=== PATIENT | male | born 1975 | race Caucasian/White ===

== ENCOUNTER 2020-05-31 14:47 | Inpatient (IN) | payer OTHER, SELFPAY ==
[~2020-05-31] VITALS: Ht 165.1 cm; Wt 91.6 kg
--- NOTE | 2020-05-31 14:50 | NUR ---
Patient to ER bed 04 to gown for evaluation. Side rails up.
[2020-05-31 15:00] VITALS: BP_SYST 126
[2020-05-31] MEDS ORDERED: DEXAMETHASONE SOD PHOSPHATE 10 MG/ML VIAL IVP ONE (15:00)
--- NOTE | 2020-05-31 15:00 | NUR ---
Pt came to ER via BLS ambulance for dyspnea and SOB. Pt O2 fell to 90% on RA per medics, was placed on 4L nasal cannula where it is now WNL. Pt resting in [facility] awaiting
--- NOTE | 2020-05-31 15:05 | NUR ---
ER at bedside examining patient.
[2020-05-31 15:18] LABS: BASOPHILS % (AUTO) 0.5 % (0.0-2.0); EOSINOPHILS % (AUTO) 0.3 % (0.0-4.0); HEMATOCRIT 42.1 % (36-54); HEMOGLOBIN 14.2 g/dL (14.0-18.0); LYMPHOCYTES # (AUTO) 1.4 K/uL (1.0-5.5); LYMPHOCYTES % (AUTO) 17.7 % (20.5-51.5); MEAN CORPUSCULAR HEMOGLOBIN 28 pg (27-31); MEAN CORPUSCULAR HGB CONC 34 % (32-36); MEAN CORPUSCULAR VOLUME 83 fL (79.0-98.0); MONOCYTES # (AUTO) 0.5 K/uL (0.0-1.0); MONOCYTES % (AUTO) 6.2 % (1.7-9.3); NEUTROPHILS # (AUTO) 5.8 K/uL (1.8-7.7); NEUTROPHILS % (AUTO) 75.3 % (40.0-70.0); PLATELET COUNT (AUTO) 258 K/uL (130-430); RED BLOOD CELL COUNT(AUTO) 5.06 MIL/uL (4.2-6.2); RED CELL DISTRIBUTION WIDTH 13.3 % (9.0-15.0); WHITE BLOOD COUNT (AUTO) 7.7 K/uL (4.8-10.8)
[2020-05-31 15:32] LABS: CALCIUM 8.5 mg/dL (8.4-11.0); CREATININE 0.83 mg/dL (0.55-1.30); POTASSIUM 3.7 mmol/L (3.5-5.1)
[2020-05-31 15:37] LABS: PROTHROMBIN TIME 9.9 SECS (9.5-12.5)
[2020-05-31 15:38] LABS: ALBUMIN 2.9 g/dL (3.4-4.8); TOTAL BILIRUBIN 0.6 mg/dL (0.0-1.0)
[2020-05-31 16:26] LABS: C-REACTIVE PROTEIN QUANT 17.6 mg/dL (0-0.5)
--- NOTE | 2020-05-31 16:30 | NUR ---
Pt states he does not have any routine medications at home. He was self medicating with cough medication and cold medication.
--- NOTE | 2020-05-31 16:53 | NUR ---
Patient will be admitted to care of Giovanna. Admitted to Tele unit. Will go to room 116B. Belongings list completed. Complete and up to date summary report printed. SBAR report to be given at bedside with opportunity for questions.
[2020-05-31] MEDS ORDERED: ALBUTEROL MDI INHALATION 8 GM INH INH PRN (17:00)
[2020-05-31] MEDS ORDERED: *LOVENOX 1MG/KG Q12H/PHARMACY XX ONE (17:00)
--- NOTE | 2020-05-31 17:20 | NUR ---
Patient was transferred via gurney from ER, in stable condition. Bulgarian speaking aax4 does not present any signs of distress on 4L NC. IV line on L hand is patent and not running any fluids at this time. Patient is ambulatory and has a urinal at bedside. Vitals were stable upon arrival. He states that he does not take any home meds. I got a ffull report from the ER nurse. Bed is low, locked, 2 side rails up and call light is within reach. Erick AKHTAR
[2020-05-31] MEDS ORDERED: ENOXAPARIN SODIUM 40 MG/0.4 ML SYRINGE SUBCUT ONE (17:30)
--- NOTE | 2020-05-31 17:35 | NUR ---
[facility] @ [phone]
[2020-05-31] MEDS: AZITHROMYCIN 500 MG in NS 250 ML IV SCH (18:52)
[2020-05-31] MEDS: cefTRIAXone 1 GM IVPB PREMIX 50 ML IV SCH (18:53)
--- NOTE | 2020-05-31 19:02 | NUR ---
Closing notes: Patient is oxygenating well, not showing any signs of distress. IV antibiotics were hung via IV line. Patient is having his dinner tray and not showing any signs of distress on 4L NC. Patient is alert and oriented and his covid test is still pending. He will remain in isolation precautions. I will give report to [facility] shift [facility] nurse. Bed is low, locked, 2 side rails up and call light is within reach. Erick AKHTAR
--- NOTE | 2020-05-31 19:30 | NUR ---
CHANGE OF SHIFT; pt. was jus admitted today, no distress. croatian speaking. on contact isolation for Covid. call light within reach.
[2020-05-31 21:00] VITALS: BP_SYST 117
--- NOTE | 2020-05-31 21:00 | NUR ---
NOTES: pt. awake, alert and oriented. IV lock on left hand. moves all extremities. no complaints manifested. pt. needs attended. instructed to use call light for help and verbalized understanding. O2 @ 4l/nc. noted occ. bout of non productive cough.
--- NOTE | 2020-06-01 | NUR ---
NOTES: pt. sleeping when checked. no complaints noted. call light within reach.
--- NOTE | 2020-06-01 03:00 | NUR ---
NOTES: condition unchanged. continue to monitor.
--- NOTE | 2020-06-01 05:15 | NUR ---
NOTES: pt. remain sleeping. condition unchanged. remains sinus rhythm. call light at bedside.
[2020-06-01 06:00] VITALS: BP_SYST 109
--- NOTE | 2020-06-01 06:44 | NUR ---
CLOSING NOTES; IV flushed and retaped. voided per urinal. still coughing on and off, did not get enough sleep because of his cough. no distress. for further care and assistance. contact isolation for PUI Covid. call light within reach.
[2020-06-01] MEDS ORDERED: ALBUTEROL SULFATE 0.083% 2.5 MG/3 ML VIAL.NEB INH PRN (07:30)
[2020-06-01 07:46] VITALS: BP_SYST 109
[2020-06-01 08:00] VITALS: BP_SYST 111
--- NOTE | 2020-06-01 08:00 | NUR ---
Note Pt sitting up in bed eating his breakfast. O2 on at 4L/nc. Pt cough, non productive at this time. Tele unit attached and intact at this time. No SOB/resp or pain/discomfort noted at this time. No needs noted at this time. Call light within reach. IV in left hand intact and patent at this time. Call light within reach.
[2020-06-01] MEDS: ENOXAPARIN SODIUM 40 MG/0.4 ML SYRINGE SUBCUT SCH (09:08)
[2020-06-01] MEDS: DEXAMETHASONE SOD PHOSPHATE 10 MG/ML VIAL IVP SCH (09:08)
[2020-06-01 12:00] VITALS: BP_SYST 114
[2020-06-01 16:00] VITALS: BP_SYST 112
[2020-06-01] MEDS: AZITHROMYCIN 500 MG in NS 250 ML IV SCH (16:50)
--- NOTE | 2020-06-01 19:00 | NUR ---
Closing note Pt has been ambulating to restroom with steady gait all shift. Pt has had his O2 on at 4L/nc all shift. No SOB/resp distress or pain/discomfort noted at this time. Pt was checked on q1' and PRN all shift for needs and care. No needs noted at this time. Call light within reach. Pt maintained with safety and isolation precautions all shift.
[2020-06-01] MEDS: cefTRIAXone 1 GM IVPB PREMIX 50 ML IV SCH (19:23)
--- NOTE | 2020-06-01 19:30 | NUR ---
CHANGE OF SHIFT; pt. resting, no acute distress. kept on isolation for PUI Covid. call light within reach.
--- NOTE | 2020-06-01 20:00 | NUR ---
NOTES: nurse Herbie took result of Covid test from lab which is positive. will call
--- NOTE | 2020-06-01 20:36 | NUR ---
NOTES: called Dr. Fernando but Dr. Hwang condemnation engineer, spoke to him about positive Covid test, no further order. keep him isolated. charge nurse Krystal also made aware.
[2020-06-01 21:00] VITALS: BP_SYST 108
[2020-06-01] MEDS: ASCORBIC ACID 500 MG TABLET PO SCH (21:00)
--- NOTE | 2020-06-01 21:30 | NUR ---
NOTES: pt. checked. flushed IV site quite sluggish, IV lock. pt. position self for comfort. encourage fluids, gave warm water. pt. needs attended. surgical services asst shows sinus rhythm, pt. ambulates to the restroom. voided per urinal. call light within reach.
--- NOTE | 2020-06-02 00:10 | NUR ---
NOTES: pt. sleeping when checked. no further complaints. call light within reach.
[2020-06-02 01:26] VITALS: BP_SYST 108
--- NOTE | 2020-06-02 02:30 | NUR ---
NO RESPIRATORY DISTRESS NOTED. RESTING QUIETLY IN BED. Addendum: 06/03/20 at 0256 by Amirah Golden RN WRONG ENTRY DATE. PLEASE DISREGARD.
--- NOTE | 2020-06-02 03:00 | NUR ---
NOTES: condition unchanged, continue to monitor. call light at bedside.
--- NOTE | 2020-06-02 05:07 | NUR ---
NOTES: still sleeping. no distress. condition unchanged. observed contact isolation for Covid.
--- NOTE | 2020-06-02 06:01 | NUR ---
NOTES: pt. up and ambulated abhishek the restroom, had small bm. verbalized he has some abdominal discomfort. , abdomen quite distended blaming the warm water he had last night. left hand IV site ,hardly flushing, restart another IV site on rt. hand with gauge #22. IV lock. claioms still gets short of breath on and off. HOB elevated and instructed on deep breathing.
--- NOTE | 2020-06-02 06:47 | NUR ---
CLOSING NOTES;' pt. resting. IV lock patent. kept O2 2 4l/nc. for further care and assistance. call light within reach. consult with Kam Brice today. observed isolation for Covid.
[2020-06-02 08:00] VITALS: BP_SYST 107
--- NOTE | 2020-06-02 08:00 | NUR ---
Note Pt sitting up in bed eating bis breakfast with O2 on at this time. Tele unit atrtached and intact at this time. IV in right hand intact and patent at this time. No SOB/resp distress or pain/discomfort noted at this time. No needs noted at this time. Call light within reach.
[2020-06-02] MEDS: DOCUSATE SODIUM 100 MG CAPSULE PO SCH (08:55)
[2020-06-02] MEDS: ASCORBIC ACID 500 MG TABLET PO SCH ×2 (08:55→21:02)
[2020-06-02] MEDS: CHOLECALCIFEROL (VITAMIN D-3) 400 UNIT TABLET PO SCH (08:55)
[2020-06-02] MEDS: DEXAMETHASONE SOD PHOSPHATE 10 MG/ML VIAL IVP SCH (08:55)
[2020-06-02] MEDS: ENOXAPARIN SODIUM 40 MG/0.4 ML SYRINGE SUBCUT SCH (08:56)
--- NOTE | 2020-06-02 09:35 | NUR ---
Note Dr Fernando on the floor to assess pt at this time.
[2020-06-02] MEDS ORDERED: *LOVENOX 1MG/KG Q12H/PHARMACY XX PRN (10:00)
--- NOTE | 2020-06-02 11:00 | NUR ---
Note Pt resting in bed, denies any needs at this time. Call light within reach.
--- NOTE | 2020-06-02 11:25 | NUR ---
SS NOTES: TURBINE INSPECTOR attempted to phone patient for DCP @ [phone], no answer. Cell # is also disconnected and no family to contact.
[2020-06-02 12:00] VITALS: BP_SYST 119
[2020-06-02 13:37] LABS: CREATININE 0.83 mg/dL (0.55-1.30)
[2020-06-02 13:43] LABS: ALBUMIN 2.6 g/dL (3.4-4.8); TOTAL BILIRUBIN 0.3 mg/dL (0.0-1.0)
[2020-06-02 13:56] LABS: BASOPHILS % (AUTO) 0.1 % (0.0-2.0); EOSINOPHILS % (AUTO) 0.3 % (0.0-4.0); HEMATOCRIT 44.5 % (36-54); HEMOGLOBIN 14.8 g/dL (14.0-18.0); LYMPHOCYTES # (AUTO) 1.1 K/uL (1.0-5.5); LYMPHOCYTES % (AUTO) 8.7 % (20.5-51.5); MEAN CORPUSCULAR HEMOGLOBIN 28 pg (27-31); MEAN CORPUSCULAR HGB CONC 33 % (32-36); MEAN CORPUSCULAR VOLUME 84 fL (79.0-98.0); MONOCYTES # (AUTO) 0.7 K/uL (0.0-1.0); MONOCYTES % (AUTO) 5.4 % (1.7-9.3); NEUTROPHILS % (AUTO) 85.5 % (40.0-70.0); PLATELET COUNT (AUTO) 381 K/uL (130-430); RED BLOOD CELL COUNT(AUTO) 5.29 MIL/uL (4.2-6.2); RED CELL DISTRIBUTION WIDTH 13.4 % (9.0-15.0); WHITE BLOOD COUNT (AUTO) 12.9 K/uL (4.8-10.8)
[2020-06-02 16:00] VITALS: BP_SYST 121
--- NOTE | 2020-06-02 16:00 | NUR ---
NOTE Pt's right hand IV infiltrated, new IV started in left forearm - 20g' - by Nia Calvillo RN at 1510. Pt resting in bed at this time. Denies any needs at this time. Call light within reach.
[2020-06-02] MEDS: AZITHROMYCIN 500 MG in NS 250 ML IV SCH (18:19)
--- NOTE | 2020-06-02 18:40 | NUR ---
Note Pt sitting on side of bed and eating his dinner. No SOB/resp distress or pain/discomfort noted at this time. Pt has his O2 on at 4L/nc on all shift. Tele unit attached and intact all shift. IV in left forearm intact and patent all shift. Pt was checked on q1' and PRN all shift for needs and care. No needs noted at this time. Pt was maintained with safety and isolation precautions all shift. Bed in low position all shift. Call light within reach.
--- NOTE | 2020-06-02 19:10 | NUR ---
REPORT RECEIVED FROM DAY SHIFT NURSE. PT IS ON OXYGEN AT 4L/MIN PER NC AND NO RESPIRATORY DISTRESS NOTED. OXYGEN SATURATION IS 98%. SKIN IS WARM AND DRY TO TOUCH. NO SIGNS OR SYMPTOMS OF HYPOGLYCEMIA OR HYPERGLYCEMIA NOTED. SALINE LOCK IN LFA IS WITHOUT ANY SIGNS OF INFILTRATION. FALL, DROPLET ISOLATION AND SAFETY PRECAUTIONS ARE IN PLACE.
[2020-06-02] MEDS: cefTRIAXone 1 GM IVPB PREMIX 50 ML IV SCH (19:11)
[2020-06-02 20:00] VITALS: BP_SYST 108
[2020-06-02] MEDS: ENOXAPARIN SODIUM 100 MG/ML SYRINGE SUBCUT SCH (21:02)
--- NOTE | 2020-06-02 21:02 | NUR ---
HS MEDICATIONS GIVEN. NO RESPIRATORY DISTRESS NOTED. PT REMAINS ON OXYGEN AT 4L/MIN PER NC.
--- NOTE | 2020-06-02 22:30 | NUR ---
NO RESPIRATORY DISTRESS NOTED. RESTING QUIETLY IN BED.
[2020-06-03] VITALS: BP_SYST 111
--- NOTE | 2020-06-03 | NUR ---
VSS. NO C/O PAIN OR DISCOMFORT. CALL LIGHT IS WITH PT AND BED IS IN LOCKED/LOWEST POSITIONS.
--- NOTE | 2020-06-03 02:30 | NUR ---
SLEEPING WITHOUT ANY RESPIRATORY DISTRESS.
--- NOTE | 2020-06-03 04:30 | NUR ---
SLEEPING COMFORTABLY IN BED. NO RESP DISTRESS NOTED.
--- NOTE | 2020-06-03 06:38 | NUR ---
FULLY AWAKE AND NOT IN ANY DISTRESS. PT REMAINS ON OXYGEN AT 4L/MIN PER NC. SALINE LOCK IN LFA IS WITHOUT ANY SIGNS OF INFILTRATION. CALL LIGHT IS WITH PT AND BED IS IN LOWEST/LOCKED POSITIONS. WILL ENDORSE TO DAY SHIFT NURSE.
--- NOTE | 2020-06-03 07:45 | NUR ---
INITIAL NOTE PT AWAKE, RESTING IN BED. PT ON 4L NC, SATURATING AT 98%. PT DENIES ANY SOB AT THIS TIME. PT HAS DRY COUGH. IV SALINE LOCKED. CALL LIGHT WITHIN REACH, BED IN LOW AND LOCKED POSITION. PT COVID POSITIVE, ISOLATION PRECAUTIONS IN PLACE.
[2020-06-03 07:50] LABS: BASOPHILS % (AUTO) 0.4 % (0.0-2.0); EOSINOPHILS # (AUTO) 0.1 K/uL (0.0-0.4); EOSINOPHILS % (AUTO) 0.9 % (0.0-4.0); HEMATOCRIT 39.3 % (36-54); LYMPHOCYTES # (AUTO) 2.2 K/uL (1.0-5.5); LYMPHOCYTES % (AUTO) 21.1 % (20.5-51.5); MEAN CORPUSCULAR HEMOGLOBIN 28 pg (27-31); MEAN CORPUSCULAR HGB CONC 33 % (32-36); MEAN CORPUSCULAR VOLUME 85 fL (79.0-98.0); MONOCYTES # (AUTO) 0.8 K/uL (0.0-1.0); MONOCYTES % (AUTO) 7.9 % (1.7-9.3); NEUTROPHILS # (AUTO) 7.4 K/uL (1.8-7.7); NEUTROPHILS % (AUTO) 69.7 % (40.0-70.0); PLATELET COUNT (AUTO) 360 K/uL (130-430); RED CELL DISTRIBUTION WIDTH 13.1 % (9.0-15.0); WHITE BLOOD COUNT (AUTO) 10.6 K/uL (4.8-10.8)
[2020-06-03 08:00] VITALS: BP_SYST 101
[2020-06-03 08:25] LABS: ALBUMIN 2.3 g/dL (3.4-4.8); CALCIUM 8.6 mg/dL (8.4-11.0); CREATININE 0.88 mg/dL (0.55-1.30); POTASSIUM 3.9 mmol/L (3.5-5.1); TOTAL BILIRUBIN 0.3 mg/dL (0.0-1.0)
[2020-06-03] MEDS: DOCUSATE SODIUM 100 MG CAPSULE PO SCH (08:35)
[2020-06-03] MEDS: DEXAMETHASONE SOD PHOSPHATE 10 MG/ML VIAL IVP SCH (08:35)
[2020-06-03] MEDS: ASCORBIC ACID 500 MG TABLET PO SCH ×2 (08:35→20:18)
[2020-06-03] MEDS: CHOLECALCIFEROL (VITAMIN D-3) 400 UNIT TABLET PO SCH (08:35)
[2020-06-03] MEDS: ENOXAPARIN SODIUM 100 MG/ML SYRINGE SUBCUT SCH ×2 (08:36→20:20)
--- NOTE | 2020-06-03 09:45 | NUR ---
RN ROUNDS NO CHANGE IN ASSESSMENT, WILL CONTINUE TO MONITOR.
[2020-06-03 12:00] VITALS: BP_SYST 103
--- NOTE | 2020-06-03 12:00 | NUR ---
RN ROUNDS PT AWAKE, SITTING AT EDGE OF BED. PT ON ROOM AIR AT THIS TIME SATURATING AT 93%. PT DENIES ANY SOB. DRY COUGH NOTED. WILL CONTINUE TO MONITOR.
--- NOTE | 2020-06-03 14:00 | NUR ---
RN ROUNDS PT RESTING, NO ACUTE DISTRESS NOTED, BREATHING EVEN AND UNLABORED. PT IS ON 2L NC AT THIS TIME. REMDESIVIR INFUSING AT THIS TIME. WILL CONTINUE TO MONITOR.
[2020-06-03 16:00] VITALS: BP_SYST 112
--- NOTE | 2020-06-03 16:00 | NUR ---
RN ROUNDS PT AWAKE RESTING IN BED, PT ON 2L NC, SATURATING AT 95%. IV ANTIBIOTICS INFUSING AT THIS TIME. WILL CONTINUE TO MONITOR.
[2020-06-03] MEDS: AZITHROMYCIN 500 MG in NS 250 ML IV SCH (17:11)
[2020-06-03] MEDS: cefTRIAXone 1 GM IVPB PREMIX 50 ML IV SCH (18:07)
--- NOTE | 2020-06-03 18:34 | NUR ---
CLOSING NOTE PT AWAKE, RESTING IN BED. PT ON 2L NC, SATURATING AT 95%. PT DENIES ANY SOB AT THIS TIME. PT HAS DRY COUGH. IV ANTIBIOTICS INFUSING. CALL LIGHT WITHIN REACH, BED IN LOW AND LOCKED POSITION. PT COVID POSITIVE, ISOLATION PRECAUTIONS IN PLACE. ALL NEEDS MET THROUGHOUT SHIFT. WILL CONTINUE TO MONITOR UNTIL PT CARE IS ENDORSED TO DIVERSIFIED CROPS FARMWORKER RN.
--- NOTE | 2020-06-03 19:20 | NUR ---
PT WAS RECEIVED LYING IN BED FULLY AWAKE, ALERT AND ORIENTED X4. PT IS ON OXYGEN AT 2L/MIN PER NC AND NO RESPIRATORY DISTRESS NOTED. OXYGEN SATURATION IS 99%. SKIN IS WARM AND DRY TO TOUCH. NO SIGNS OR SYMPTOMS OF HYPOGLYCEMIA OR HYPERGLYCEMIA NOTED. SALINE LOCK IN LFA IS WITHOUT ANY SIGNS OF INFILTRATION. FALL, DROPLET ISOLATION AND SAFETY PRECAUTIONS ARE IN PLACE.
[2020-06-03 20:00] VITALS: BP_SYST 109
--- NOTE | 2020-06-03 22:00 | NUR ---
PT IS RESTING COMFORTABLY IN BED. NO RESPIRATORY DISTRESS NOTED. CALL LIGHT IS WITH PT AND BED IS IN LOCKED/LOWEST POSITIONS.
[2020-06-04] VITALS: BP_SYST 112
--- NOTE | 2020-06-04 | NUR ---
VSS. NO C/O PAIN OR DISCOMFORT. CALL LIGHT IS WITH PT AND BED IS IN LOWEST/LOCKED POSITIONS.
--- NOTE | 2020-06-04 02:00 | NUR ---
PT IS SLEEPING WITHOUT ANY RESPIRATORY DISTRESS NOTED. CALL LIGHT IS WITH PT AND BED IS IN LOWEST/LOCKED POSITIONS.
--- NOTE | 2020-06-04 04:15 | NUR ---
PT IS SLEEPING COMFORTABLY ON BED WITHOUT ANY RESPIRATORY DISTRESS NOTED. CALL LIGHT IS WITH PT AND BED IS IN LOWEST/LOCKED POSITIONS.
--- NOTE | 2020-06-04 06:45 | NUR ---
PT IS FULLY AWAKE AND ALERT. PT REMAINS ON OXYGEN AT 2L/MIN PER NC. SALINE LOCK IN LFA IS WITHOUT ANY SIGNS OF INFILTRATION. CALL LIGHT IS WITH PT AND BED IS IN LOWEST/LOCKED POSITIONS. WILL ENDORSE TO DAY SHIFT NURSE.
--- NOTE | 2020-06-04 08:30 | NUR ---
OPENING NOTES: RECEIVED PATIENT AWAKE, ALERT, ORIENTED. RESPIRATIONS EVEN AND UNLABORED. NO ACUTE DISTRESS NOTED. NO FACIAL GRIMACE NOTED. WILL CONTINUE TO MONITOR PATIENT.
[2020-06-04] MEDS: DEXAMETHASONE SOD PHOSPHATE 10 MG/ML VIAL IVP SCH (09:57)
[2020-06-04] MEDS: CHOLECALCIFEROL (VITAMIN D-3) 400 UNIT TABLET PO SCH (09:57)
[2020-06-04] MEDS: ASCORBIC ACID 500 MG TABLET PO SCH ×2 (09:57→21:52)
[2020-06-04] MEDS: DOCUSATE SODIUM 100 MG CAPSULE PO SCH (09:57)
[2020-06-04] MEDS: ENOXAPARIN SODIUM 100 MG/ML SYRINGE SUBCUT SCH ×2 (10:02→21:52)
[2020-06-04 14:08] VITALS: BP_SYST 112
[2020-06-04] MEDS: AZITHROMYCIN 500 MG in NS 250 ML IV SCH (17:36)
[2020-06-04] MEDS: cefTRIAXone 1 GM IVPB PREMIX 50 ML IV SCH (18:27)
--- NOTE | 2020-06-04 18:36 | NUR ---
CLOSING NOTES: HOURLY ROUNDING PERFORMED. PATIENT AWAKE, ALERT, ORIENTED. RESPIRATIONS EVEN AND UNLABORED. NO ACUTE DISTRESS NOTED. NO PAIN NOTED. WILL ENDORSE TO RN FLOAT NURSE FOR CONTINUITY OF CARE OF PATIENT.
[2020-06-04 18:41] VITALS: BP_SYST 105
--- NOTE | 2020-06-04 19:20 | NUR ---
OPENING NOTE RECEIVED REPORT FROM HERMILO DANIELSON. PATIENT AOX4. NO SIGNS OF RESPIRATORY DISTRESS AND DISCOMFORT NOTED. ON 2L OF OXYGEN VIA NASAL CANULA, ATTACHED AND SECURED, TOLERATING WELL, TITRATE AT 1L OF OXYGEN AT THIS TIME, 02 SATURATION OF 95%. IV SITE, PATENCY NOTED. CALL LIGHT WITHIN REACH. PATIENT WAS EDUCATED TO USE CALL LIGHT WHEN ASSISTANCE IS NEEDED. PATIENT VERBALIZED UNDERSTANDING. BED LOCKED AND IN LOWEST POSITION. REFUSED BED ALARM, PATIENT WAS EDUCATED ON PURPOSE AND BENEFITS OF BED ALARM, STILL REFUSED. OTHER SAFETY PRECAUTIONS IN PLACE. WILL CONTINUE TO MONITOR PATIENT.
[2020-06-04 20:00] VITALS: BP_SYST 117
--- NOTE | 2020-06-04 21:52 | NUR ---
MED PASS DUE MEDICATION GIVEN AT THIS TIME. PATIENT WAS EDUCATED ON MEDICATION THAT WAS GIVEN FOR ITS PURPOSE, SIDE EFFECT AND BENEFITS. PATIENT ABLE TO VERBALIZED UNDERSTANDING. CALL LIGHT WITHIN IN REACH. ON 1L OF OXYGEN VIA NASAL CANULA, 02 SATURATION OF 95%. DENIES PAIN AND DISCOMFORT. SAFETY PRECAUTIONS IN PLACE. WILL CONTINUE TO MONITOR PATIENT
--- NOTE | 2020-06-04 23:45 | NUR ---
VITAL SIGNS/ RN ROUNDS PATIENT HAS NO SIGNS OF RESPIRATORY DISTRESS NOTED. DENIES PAIN AND DISCOMFORT. ON 1L OF OXYGEN, TOLERATING WELL, O2 SATURATION AT 95%. CALL LIGHT WITHIN REACH. NEEDS ATTENDED. SAFETY PRECAUTIONS IN PLACE. WILL CONTINUE TO MONITOR PATIENT.
[2020-06-05] VITALS: BP_SYST 116
--- NOTE | 2020-06-05 02:36 | NUR ---
RN ROUNDS PATIENT ASLEEP AT THIS TIME. NO SIGNS OF RESPIRATORY DISTRESS AND DISCOMFORT NOTED. BREATHING EVEN AND UNLABORED. ON 1L OF OXYGEN VIA NASAL CANULA, TOLERATING WELL. CALL LIGHT WITHIN REACH. SAFETY PRECAUTIONS IN PLACE. WILL CONTINUE TO MONITOR PATIENT
--- NOTE | 2020-06-05 07:00 | NUR ---
CLOSING NOTE PATIENT ASLEEP AT THIS TIME. PATIENT HAS NO SIGNS OF RESPIRATORY DISTRESS AND DISCOMFORT NOTED. BREATHING EVEN AND UNLABORED. ON 1L OF OXYGEN, TOLERATING WELL. CALL LIGHT WITHIN REACH. ON ISOLATION PRECAUTION. SAFETY PRECAUTIONS IN PLACE. ALL NEEDS MET THROUGHOUT THE SHIFT. WILL CONTINUE TO MONITOR UNTIL ENDORSE TO ONCOMING SHIFT NURSE FOR CONTINUITY OF CARE.
--- NOTE | 2020-06-05 07:43 | NUR ---
Opening Note received SBAR report from overnight cashier RN, patient resting in bed, respirations even and unlabored on 1L nasal cannula, no acute distress noted, educated patient on use of call light and asked to call for assistance, patient verbalized understanding, call light in reach, educated patient on use of bed alarm for patient safety, patient verbalized understanding, patient refusing bed alarm, bed in low and locked position.
[2020-06-05 08:00] VITALS: BP_SYST 115
[2020-06-05] MEDS: DOCUSATE SODIUM 100 MG CAPSULE PO SCH (08:48)
[2020-06-05] MEDS: DEXAMETHASONE SOD PHOSPHATE 10 MG/ML VIAL IVP SCH (08:49)
[2020-06-05] MEDS: CHOLECALCIFEROL (VITAMIN D-3) 400 UNIT TABLET PO SCH (08:50)
[2020-06-05] MEDS: ASCORBIC ACID 500 MG TABLET PO SCH ×2 (08:50→22:27)
[2020-06-05] MEDS: ENOXAPARIN SODIUM 100 MG/ML SYRINGE SUBCUT SCH ×2 (08:50→22:21)
--- NOTE | 2020-06-05 09:50 | NUR ---
RN Rounds patient sitting up in bed eating breakfast, tolerating well, patient denies any pain, no acute distress noted.
[2020-06-05 12:00] VITALS: BP_SYST 128
--- NOTE | 2020-06-05 12:15 | NUR ---
Lunch patient sitting up in bed eating lunch, tolerating well, no acute distress noted, patient denies any nausea or vomiting.
--- NOTE | 2020-06-05 12:37 | NUR ---
Dietitian Recommendations * Continue regular diet order Monitor/Evaluation Comment Monitor GI function (Diarrhea) Please see Nutrition Assessment for details. SS, RD
--- NOTE | 2020-06-05 14:40 | NUR ---
RN Rounds patient sitting up in bedside chair, patient removed oxygen via nasal cannula, O2Sat 93% on room air, patient denies any shortness of breath or chest pain.
[2020-06-05 16:00] VITALS: BP_SYST 115
--- NOTE | 2020-06-05 16:47 | NUR ---
RN Rounds patient resting in bed watching TV, IV antibiotics infusing well, no redness or swelling noted at IV site, patient denies any pain, no acute distress noted.
[2020-06-05] MEDS: cefTRIAXone 1 GM IVPB PREMIX 50 ML IV SCH (17:53)
--- NOTE | 2020-06-05 19:15 | NUR ---
Closing Note SBAR report given to receiving RN, patient resting in bed, respirations even and unlabored on room air, no acute distress noted, patient denies any shortness of breath or chest pain, patient denies any pain, educated patient on use of call light and asked to call for assistance, patient verbalized understanding, call light in reach, educated patient on use of bed alarm for patient safety, patient verbalized understanding, patient refusing bed alarm, bed in low and locked position, care endorsed to Alethea AKHTAR.
--- NOTE | 2020-06-05 19:20 | NUR ---
OPENING NOTE RECEIVED REPORT FROM HERMILO CLEANING. PATIENT AOX4. NO SIGNS OF RESPIRATORY DISTRESS AND DISCOMFORT NOTED. ON ROOM AIR, TOLERATING WELL. O2 SATURATION OF 95%. PATIENT WAS EDUCATED ON PROPER BREATHING EXERCISE, PATIENT ABLE TO VERBALIZED UNDERSTANDING. IV SITE, PATENCY NOTED. CALL LIGHT WITHIN REACH. PATIENT WAS EDUCATED TO USE CALL LIGHT WHEN ASSISTANCE IS NEEDED. PATIENT VERBALIZED UNDERSTANDING. BED LOCKED AND IN LOWEST POSITION. REFUSED BED ALARM, PATIENT WAS EDUCATED ON PURPOSE AND BENEFITS OF BED ALARM, STILL REFUSED AT THIS TIME. OTHER SAFETY PRECAUTIONS IN PLACE. ON ISOLATION PRECAUTION. WILL CONTINUE TO MONITOR PATIENT.
[2020-06-05 20:00] VITALS: BP_SYST 110
--- NOTE | 2020-06-05 22:27 | NUR ---
MED PASS DUE MEDICATION GIVEN AT THIS TIME. PATIENT WAS EDUCATED ON MEDICATION THAT WAS GIVEN FOR ITS PURPOSE, SIDE EFFECT AND BENEFITS. PATIENT ABLE TO VERBALIZED UNDERSTANDING. PATIENT ON ROOM AIR, TOLERATING WELL. NO SIGNS OF RESPIRATORY DISTRESS, PATIENT DENIES PAIN, SOB AND DISCOMFORT. CALL LIGHT WITHIN IN REACH. SAFETY PRECAUTIONS IN PLACE. WILL CONTINUE TO MONITOR PATIENT
--- NOTE | 2020-06-05 23:45 | NUR ---
VITAL SIGNS/ RN ROUNDS PATIENT HAS NO SIGNS OF RESPIRATORY DISTRESS NOTED. DENIES PAIN AND DISCOMFORT. PATIENT VITAL SIGNS TAKEN AND WILL BE RECORDED. AT THIS TIME, PATIENT O2 SATURATION IS 92%, PATIENT DENIES SOB. PATIENT WAS PUT ON 1L OF OXYGEN VIA NASAL CANULA. PATIENT ON 1L OF OXYGEN TOLERATING WELL, O2 SATURATION AT 93%-94% AT THIS TIME. PATIENT WAS EDUCATED/ ENCOURAGE ON PROPER BREATHING EXERCISE, COUGH IS NOTED DURING INHALATION, WILL CONTINUE TO MONITOR PATIENTS OXYGEN SATURATION. CALL LIGHT WITHIN REACH. NEEDS ATTENDED. SAFETY PRECAUTIONS IN PLACE. WILL CONTINUE TO MONITOR PATIENT.
[2020-06-06 00:11] VITALS: BP_SYST 117
--- NOTE | 2020-06-06 02:10 | NUR ---
RN ROUNDS PATIENT ASLEEP AT THIS TIME. NO SIGNS OF RESPIRATORY DISTRESS AND DISCOMFORT NOTED. BREATHING EVEN AND UNLABORED. CALL LIGHT WITHIN REACH. SAFETY PRECAUTIONS IN PLACE. WILL CONTINUE TO MONITOR PATIENT
--- NOTE | 2020-06-06 06:40 | NUR ---
CLOSING NOTE PATIENT ASLEEP AT THIS TIME. PATIENT HAS NO SIGNS OF RESPIRATORY DISTRESS AND DISCOMFORT NOTED. BREATHING EVEN AND UNLABORED. CALL LIGHT WITHIN REACH. ON ISOLATION PRECAUTION. SAFETY PRECAUTIONS IN PLACE. ALL NEEDS MET THROUGHOUT THE SHIFT. WILL CONTINUE TO MONITOR UNTIL ENDORSE TO ONCOMING SHIFT NURSE FOR CONTINUITY OF CARE.
[2020-06-06 06:41] LABS: ALBUMIN 2.7 g/dL (3.4-4.8); BILIRUBIN,DIRECT 0.1 mg/dL (0.0-0.3); C-REACTIVE PROTEIN QUANT 1.2 mg/dL (0-0.5); CALCIUM 9.1 mg/dL (8.4-11.0); CREATININE 0.9 mg/dL (0.55-1.30); TOTAL BILIRUBIN 0.4 mg/dL (0.0-1.0)
[2020-06-06 06:44] LABS: BASOPHILS # (AUTO) 0.1 K/uL (0.0-0.2); BASOPHILS % (AUTO) 0.5 % (0.0-2.0); EOSINOPHILS # (AUTO) 0.1 K/uL (0.0-0.4); EOSINOPHILS % (AUTO) 1.1 % (0.0-4.0); HEMOGLOBIN 14.3 g/dL (14.0-18.0); LYMPHOCYTES % (AUTO) 26.6 % (20.5-51.5); MEAN CORPUSCULAR HEMOGLOBIN 28 pg (27-31); MEAN CORPUSCULAR HGB CONC 33 % (32-36); MEAN CORPUSCULAR VOLUME 85 fL (79.0-98.0); MONOCYTES # (AUTO) 0.8 K/uL (0.0-1.0); MONOCYTES % (AUTO) 7.3 % (1.7-9.3); NEUTROPHILS # (AUTO) 7.4 K/uL (1.8-7.7); NEUTROPHILS % (AUTO) 64.5 % (40.0-70.0); PLATELET COUNT (AUTO) 488 K/uL (130-430); RED BLOOD CELL COUNT(AUTO) 5.07 MIL/uL (4.2-6.2); RED CELL DISTRIBUTION WIDTH 13.4 % (9.0-15.0); WHITE BLOOD COUNT (AUTO) 11.4 K/uL (4.8-10.8)
[2020-06-06 08:00] VITALS: BP_SYST 116
--- NOTE | 2020-06-06 08:05 | NUR ---
Opening Note received SBAR report from limited radiology technician RN, patient resting in bed, respirations even and unlabored on 1L nasal cannula, no acute distress noted, patient denies any pain, educated patient on use of call light and asked to call for assistance, patient verbalized understanding, call light in reach, educated patient on use of bed alarm for patient safety, patient verbalized understanding, patient refusing bed alarm, bed in low and locked position.
[2020-06-06 08:33] LABS: ERYTHROCYTE SEDIMENTATION RATE 62 MM/HR (0-15)
[2020-06-06] MEDS: DOCUSATE SODIUM 100 MG CAPSULE PO SCH (08:54)
[2020-06-06] MEDS: ASCORBIC ACID 500 MG TABLET PO SCH ×2 (08:54→20:35)
[2020-06-06] MEDS: DEXAMETHASONE SOD PHOSPHATE 10 MG/ML VIAL IVP SCH (08:54)
[2020-06-06] MEDS: CHOLECALCIFEROL (VITAMIN D-3) 400 UNIT TABLET PO SCH (08:54)
[2020-06-06] MEDS: ENOXAPARIN SODIUM 100 MG/ML SYRINGE SUBCUT SCH ×2 (08:54→20:35)
--- NOTE | 2020-06-06 09:40 | NUR ---
RN Rounds patient sitting up in bed eating breakfast, tolerating well, no acute distress noted, patient denies any pain or shortness of breath.
--- NOTE | 2020-06-06 11:55 | NUR ---
RN Rounds patient sitting up eating lunch, tolerating well, patient denies any nausea or vomiting, no acute distress noted.
[2020-06-06 12:00] VITALS: BP_SYST 109
--- NOTE | 2020-06-06 13:40 | NUR ---
Bedside chair patient sitting in bedside chair, respirations even and unlabored on 1L nasal cannula, no acute distress noted, patient denies any pain.
--- NOTE | 2020-06-06 15:50 | NUR ---
Ambulated to bathroom patient ambulated to bathroom, voided x1, patient ambulated back to bed, patient completed independently, steady gait noted.
[2020-06-06 16:34] VITALS: BP_SYST 119
--- NOTE | 2020-06-06 17:00 | NUR ---
Snack patient requesting snack, provided patient with turkey sandwich, patient sitting up in bed eating snack, tolerating well, patient denies any nausea or vomiting, patient denies any shortness of breath or pain.
[2020-06-06] MEDS: cefTRIAXone 1 GM IVPB PREMIX 50 ML IV SCH (17:58)
--- NOTE | 2020-06-06 19:28 | NUR ---
Closing Note SBAR report given to receiving RN, patient resting in bed, respirations even and unlabored on 1L nasal cannula, no acute distress noted, patient denies any pain or shortness of breath, educated patient on use of call light and asked to call for assistance, patient verbalized understanding, call light in reach, educated patient on use of bed alarm for patient safety, patient verbalized understanding, patient refusing bed alarm, bed in low and locked position, care endorsed to Miguel AKHTAR.
--- NOTE | 2020-06-06 19:50 | NUR ---
initial notes: pt is sitting on edge of bed. awake, alert, oriented x 4. no pain, no distress, no sob, room air, vital sign stable, iv lock intact.covid isolation. explain to pt plan of care and his isolation. pt verbalized understanding. needs attended, bert light in reach. covid isoaltion. will follow-up.
[2020-06-06 20:00] VITALS: BP_SYST 117
--- NOTE | 2020-06-06 22:00 | NUR ---
pt is came back from bathroom. steady gait. no pain, no sob. sable. needs attended. call light in reach. will follow-up.
--- NOTE | 2020-06-07 | NUR ---
sleeping, no sob, not distress. covid isolation.
--- NOTE | 2020-06-07 02:09 | NUR ---
sleeping,comfortable. no sob, not distress. stable. covid isolation.
--- NOTE | 2020-06-07 04:10 | NUR ---
sleeping on his side,comfortable. no sob, not distress. stable. covid isolation.
--- NOTE | 2020-06-07 06:09 | NUR ---
sleeping on his side,comfortable. no sob, not distress. stable. covid isolation.
[2020-06-07 06:40] VITALS: BP_SYST 117
--- NOTE | 2020-06-07 07:19 | NUR ---
closing: sleeping,stable. no pain.needs attended sbar report given to am rn.
--- NOTE | 2020-06-07 07:30 | NUR ---
OPENING NOTES: RECEIVED PATIENT FROM MEAT PICKLER NURSE. PATIENT IS AWAKE AND ALERT x4 LAYING DOWN IN BED. PATIENT DENIES ANY PAIN AT THE MOMENT. PATIENT IS TOLERATING OXYGEN ON ROOM AIR AND SATURATING AT 92%. IV SITE IS PATENT WITH NO SIGNS OF INFILTRATION NOTED. PATIENT IN STABLE CONDITION. SAFETY, FALL, ASPIRATION, CONTACT AND DROPLET PRECAUTIONS ARE IN PLACE. BED LOCKED IN LOWEST POSITION WITH CALL LIGHT IN REACH. WILL CONTINUE TO MONITOR PATIENT FOR ANY CHANGES.
[2020-06-07] MEDS: ASCORBIC ACID 500 MG TABLET PO SCH ×2 (08:40→22:21)
[2020-06-07] MEDS: DEXAMETHASONE SOD PHOSPHATE 10 MG/ML VIAL IVP SCH (08:40)
[2020-06-07] MEDS: CHOLECALCIFEROL (VITAMIN D-3) 400 UNIT TABLET PO SCH (08:40)
[2020-06-07] MEDS: DOCUSATE SODIUM 100 MG CAPSULE PO SCH (08:40)
[2020-06-07 08:43] VITALS: BP_SYST 118
[2020-06-07] MEDS: ENOXAPARIN SODIUM 100 MG/ML SYRINGE SUBCUT SCH ×2 (09:47→22:22)
--- NOTE | 2020-06-07 10:27 | NUR ---
RN ROUNDS: PATIENT IS AWAKE AND ALERT x4 LAYING DOWN IN BED. PATIENT IS TOLERATING OXYGEN ON ROOM AIR WITH NO SIGNS OF DISTRESS OR SHORTNESS OF BREATH NOTED. IV SITE IS PATENT WITH NO SIGNS OF INFILTRATION NOTED. PATIENT IN STABLE CONDITION. WILL CONTINUE TO MONITOR PATIENT FOR ANY CHANGES.
[2020-06-07 12:33] VITALS: BP_SYST 121
--- NOTE | 2020-06-07 12:34 | NUR ---
RN ROUNDS: PATIENT IS AWAKE AND ALERT x4 LAYING DOWN IN BED. PATIENT IS TOLERATING OXYGEN ON ROOM AIR WITH NO SIGNS OF DISTRESS NOTED. IV SITE IS PATENT WITH NO SIGNS OF INFILTRATION NOTED. PATIENT IN STABLE CONDITION. WILL CONTINUE TO MONITOR PATIENT FOR ANY CHANGES.
[2020-06-07 16:40] VITALS: BP_SYST 121
--- NOTE | 2020-06-07 18:42 | NUR ---
CLOSING NOTES: PATIENT IS AWAKE AND ALERT x4 LAYING DOWN IN BED. PATIENT DENIES ANY PAIN AT THE MOMENT. PATIENT IS TOLERATING OXYGEN ON 1 L NASAL CANNULA AND SATURATING AT 97%. IV SITE IS PATENT WITH NO SIGNS OF INFILTRATION NOTED. PATIENT IN STABLE CONDITION. SAFETY, FALL, ASPIRATION, CONTACT AND DROPLET PRECAUTIONS REMAINED IN PLACE THROUGHOUT THE SHIFT. BED LOCKED IN LOWEST POSITION WITH CALL LIGHT IN REACH. WILL ENDORSE PATIENT CARE TO ONCOMING SIDE DOOR MAN NURSE.
--- NOTE | 2020-06-07 19:30 | NUR ---
Opening notes Received report. Patient is resting in bed, breathing even and unlabored on 1 L NC. IV patent and intact, no signs of infiltration noted. Patient provided with sandwich and coffee. No other needs. Call light with the patient. Safety precautions in place.
[2020-06-07 20:00] VITALS: BP_SYST 136
--- NOTE | 2020-06-07 21:00 | NUR ---
Medications given. Educated the action and side effects of Lovenox. Patient verbalized understanding and tolerated well. No other needs. Call light with the patient. Safety precautions in place.
--- NOTE | 2020-06-07 22:30 | NUR ---
RN rounds Patient is resting in bed, watching TV. No signs of distress noted. Breathing even and unlabored on 1 L NC. No needs. Call light with the patient. Safety precautions in place.
--- NOTE | 2020-06-08 00:30 | NUR ---
RN rounds Patient is resting in bed, no signs of distress noted. Breathing even and unlabored on room air. VSS. O2 sat 98%. No needs at this time. Call light with the patient. Safety precautions in place.
[2020-06-08 00:34] VITALS: BP_SYST 127
--- NOTE | 2020-06-08 02:56 | NUR ---
RN rounds Patient is sleeping. No signs of distress noted. Breathing even and unlabored on room air. Call light with the patient. Safety precautions in place.
--- NOTE | 2020-06-08 04:57 | NUR ---
RN rounds Patient is sleeping, no signs of distress noted. Breathing even and unlabored on room. No needs at this time. Call light with the patient. Safety precautions in place.
--- NOTE | 2020-06-08 07:07 | NUR ---
Closing notes Patient is resting in bed, No signs of distress noted. Breathing even and unlabored on room air. No complaints of SOB, sometimes with a cough. IV patent and intact, no signs of infiltration noted. All needs met throughout the shift. call light with the patient. Safety precautions in place. Care endorsed to day shift RN.
--- NOTE | 2020-06-08 07:30 | NUR ---
OPENING NOTES: RECEIVED PATIENT FROM AIRPLANE RIGGER NURSE. PATIENT IS AWAKE AND ALERT x4 LAYING DOWN IN BED. PATIENT DENIES ANY PAIN AT THE MOMENT. PATIENT IS TOLERATING OXYGEN ON ROOM AIR AND SATURATING AT 94%. IV SITE IS PATENT WITH NO SIGNS OF INFILTRATION NOTED. PATIENT IN STABLE CONDITION. SAFETY, FALL, ASPIRATION, CONTACT AND DROPLET PRECAUTIONS ARE IN PLACE. BED LOCKED IN LOWEST POSITION WITH CALL LIGHT IN REACH. WILL CONTINUE TO MONITOR PATIENT FOR ANY CHANGES.
[2020-06-08 08:00] VITALS: BP_SYST 123
[2020-06-08] MEDS: ASCORBIC ACID 500 MG TABLET PO SCH (09:25)
[2020-06-08] MEDS: DOCUSATE SODIUM 100 MG CAPSULE PO SCH (09:25)
[2020-06-08] MEDS: CHOLECALCIFEROL (VITAMIN D-3) 400 UNIT TABLET PO SCH (09:25)
[2020-06-08] MEDS: DEXAMETHASONE SOD PHOSPHATE 10 MG/ML VIAL IVP SCH (09:25)
[2020-06-08] MEDS: ENOXAPARIN SODIUM 100 MG/ML SYRINGE SUBCUT SCH (09:26)
[2020-06-08 09:58] VITALS: BP_SYST 120; BP_SYST 123
[2020-06-08] MEDS ORDERED: DEXA6TAB5 PO (10:49)
[2020-06-08] MEDS ORDERED: AMOX-426 PO (10:49)
[2020-06-08] MEDS ORDERED: APIX2.5T PO (10:49)
[2020-06-08 12:12] VITALS: BP_SYST 120
--- NOTE | 2020-06-08 12:30 | NUR ---
RN ROUNDS: PATIENT IS AWAKE AND ALERT x4 LAYING DOWN IN BED. PATIENT IS ON ROOM AIR WITH NO SIGNS OF DISTRESS OR SHORTNESS OF BREATH NOTED. IV SITE IS PATENT WITH NO SIGNS OF INFILTRATION NOTED. PATIENT IN STABLE CONDITION. WILL CONTINUE TO MONITOR PATIENT FOR ANY CHANGES.
--- NOTE | 2020-06-08 13:30 | NUR ---
MISPLACED INSURANCE CARD: SPOKE WITH PATIENT AND HIS REGARDING THE INSURANCE CARD WHICH WAS LEFT IN ER WHEN PATIENT WAS BROUGHT IN. INFORMED PATIENT THAT THE RF DESIGN ENGINEER STATED THAT THEY HAD MAILED OUT A CARD A FEW DAYS AGO BUT DO NOT REMEMBERS WHO'S. INFORMED THE PATIENT IF IT DOES NOT COME IN THE MAIL WITHIN THE NEXT FEW DAYS THAN HE WILL NEED TO CALL HIS INSURANCE COMPANY TO REPORT IT LOST. PATIENT AND VERBALIZED UNDERSTANDING.
--- NOTE | 2020-06-08 13:51 | NUR ---
D/C Patient: Patient given medication reconciliation form and D/C instructions. Exit Care provided. Patient verbalized understanding. MD discussed with patient the results and treatment provided. Ambulatory with steady gait for discharge to home. Patient in stable condition, ID band removed. IV catheter removed, intact and dressing applied, no active bleeding. Rx of Amoxicillin, Apixaban and Dexamethason sent to preferred pharmacy. Patient educated on pain management. All belongings sent with patient.
== END 2020-06-08 13:51 | disposition home or self-care (01) | DRG 871 ==
LOC: SED 14:47 → STU 16:43 → SMU 06-05 10:00
PROVIDERS: ADMIT Internal Medicine Hospice and Palliative Medicine; ATTEND Internal Medicine Hospice and Palliative Medicine
DX: A41.9 Sepsis, unspecified organism (principal); J12.89 Other viral pneumonia; J96.01 Acute respiratory failure with hypoxia; U07.1 COVID-19; E11.9 Type 2 diabetes mellitus without complications; I10 Essential (primary) hypertension; Z79.01 Long term (current) use of anticoagulants
CPT/HCPCS: 36415; 36600; 71045; 80048; 80053; 80076; 82550-TC; 82728; 82803-TC; 83605; 83615-TC; 83880; 84484; 85025; 85384-TC; 85610-TC; 85651-TC; 85730-TC; 86140; 87040-TC; 93005; 94760; 96372; 99291; G0378; J0456; J0696; J1100; J1650; J7050; U0003-CS

== ENCOUNTER 2020-06-21 13:43 | Emergency (ER) | payer OTHER, SELFPAY ==
[~2020-06-21] VITALS: Ht 167.6 cm; Wt 95.3 kg
[~2020-06-21 13:43] MED LIST: AMOX-426 PO; APIX2.5T PO; DEXA6TAB5 PO
[2020-06-21 13:45] VITALS: BP_SYST 123
[2020-06-21 14:21] VITALS: BP_SYST 123
== END 2020-06-21 14:21 | disposition home or self-care (01) ==
LOC: SED 13:43
DX: B09 Unspecified viral infection characterized by skin and mucous membrane lesions (principal); I10 Essential (primary) hypertension; E11.9 Type 2 diabetes mellitus without complications; Z79.899 Other long term (current) drug therapy
CPT/HCPCS: 99283